=== PATIENT | male | born 1990 | race Caucasian/White ===

== ENCOUNTER 2016-10-21 14:16 | Emergency (ER) | payer SELFPAY ==
[2016-10-21 14:30] VITALS: BP 153/88
--- NOTE | 2016-10-21 14:54 | EDM.PDOC ---
ED HPI GENERAL MEDICAL PROBLEM - General Chief Complaint: Lower Extremity Injury/Pain Stated Complaint: LEFT LEG INFECTION Time Seen by Provider: 10/21/16 14:40 Source of Information: Reports: Patient History Limitations: Reports: No Limitations - History of Present Illness INITIAL COMMENTS - FREE TEXT/NARRATIVE: Patient is a 26-year-old male presents to ED with concerns of possible infection to abrasion to his left lower leg and ankle. Patient states this past Sunday while playing softball he slid causing a large abrasion to his left lower leg and ankle. Since then he has been utilizing triple antibiotic ointment but noticed some thin clear to yellow drainage. His is concerned may be infected. There is no redness noted around the abrasion site nor increased warmth or swelling. Patient's tetanus status up-to-date. He denies any additional complaints. Left Leg Pain Score (Numeric/FACES): 7 - Related Data Allergies Allergy/AdvReac Type Severity Reaction Status Date / Time No Known Allergies Allergy Verified 10/21/16 14:30 Home Meds: Home Meds . [No Known Home Meds] 08/19/13 [History] Past Medical History - Past Health History Medical/Surgical History: Denies Medical/Surgical History Social & Family History - Tobacco Use Smoking Status *Q: Never Smoker Second Hand Smoke Exposure: No - Alcohol Use Days Per Week of Alcohol Use: 0 - Recreational Drug Use Recreational Drug Use: No Review of Systems - Review of Systems Review Of Systems: ROS reveals no pertinent complaints other than HPI. ED EXAM, GENERAL - Physical Exam Exam: See Below Exam Limited By: No Limitations General Appearance: Alert, WD/WN, No Apparent Distress Ears: Hearing Grossly Normal Nose: Normal Inspection Throat/Mouth: Normal Voice, No Airway Compromise Neck: Normal Inspection, Supple Respiratory/Chest: No Respiratory Distress, No Accessory Muscle Use Cardiovascular: Normal Peripheral Pulses, Regular Rate, Rhythm Extremities: Other (left lower extremity: Large abrasion noted to the lateral aspect of left lower leg with large soft yellowish scab present. Small abrasion to the left lateral ankle with small yellowish soft scab present. No erythema around the abrasion sites. No increase one. No increased redness noted. No signs of infection present at all. The scab was removed from large abrasion site with no foreign bodies within the abrasion noted.) Neurological: Alert, Oriented, Normal Cognition, Normal Gait, No Motor/Sensory Deficits Psychiatric: Normal Affect, Normal Mood Skin Exam: Warm Course - Vital Signs Last Recorded V/S: Last Vital Signs Temp 98.5 F 10/21/16 14:28 Pulse 72 10/21/16 14:28 Resp 18 10/21/16 14:28 BP 153/88 H 10/21/16 14:28 Pulse Ox 100 10/21/16 14:28 - Re-Assessments/Exams Free Text/Narrative Re-Assessment/Exam: Patient has 2 abrasions to the left lower leg. The first abrasion is quite large encompassing the left lateral aspect of his lower leg. Large soft scab present was removed. No foreign bodies present. No purulent drainage present. No signs of infection. Will have nursing staff place large amounts of bacitracin ointment to the affected areas with a nonadherent dressing and Kerlix. We'll discharge patient home with instructions as documented. Departure - Departure Time of Disposition: 14:52 Disposition: Home, Self-Care 01 Condition: good Clinical Impression: Abrasions of multiple sites - Discharge Information Forms: ED Department Discharge Additional Instructions: Cleanse sites twice daily with soap water, pat dry, reapply triple antibiotic dressing. Keep area clean. Utilize dressing until no drainage present. Take Tylenol and ibuprofen in alternating fashion for pain. Return back to ED if you develop any new or worsening symptoms.
== END 2016-10-21 15:03 | disposition home or self-care (01) ==
LOC: JD.ED 14:16
DX: S90.512A Abrasion, left ankle, initial encounter (principal); S80.812A Abrasion, left lower leg, initial encounter; X58.XXXA Exposure to other specified factors, initial encounter; Y93.64 Activity, baseball
CPT/HCPCS: 99282; 99283